=== PATIENT | male | born 1970 ===

== ENCOUNTER 2017-02-01 11:48 | Observation (INO) | payer OTHER ==
--- NOTE | 2017-02-01 13:53 | C.PDOC ---
History Of Present Illness 46 y/o male presents to the ED with complaints of pain and swelling to right calf for the past 2 weeks. He has been taking Advil with little relief. Pt denies having similar symptoms in the past. Last seen by PMD 6 months ago, normal evaluation. 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 Denies chest pain, SOB, fever or other complaints. Denies any significant pmhx or pshx. Denies use of testosterone or hormones. NKDA. Time Seen by Provider: 02/01/17 13:05 Chief Complaint (Nursing): Lower Extremity Problem/Injury History Per: Patient History/Exam Limitations: no limitations Onset/Duration Of Symptoms: Days Current Symptoms Are (Timing): Worse Severity: Moderate Recent travel outside of the [place]: No Past Medical History Reviewed: Historical Data, Nursing Documentation, Vital Signs Vital Signs: Last Vital Signs Temp 97.8 F 02/01/17 17:56 Pulse 86 02/01/17 17:56 Resp 18 02/01/17 17:56 BP 124/79 02/01/17 17:56 Pulse Ox 100 02/01/17 17:56 Family History: States: Unknown Family Hx - Social History Hx Alcohol Use: Yes Hx Substance Use: No - Immunization History Hx Tetanus Toxoid Vaccination: No Hx Influenza Vaccination: Yes (2016) Hx Pneumococcal Vaccination: Yes Review Of Systems Constitutional: Negative for: Fever, Chills Cardiovascular: Negative for: Chest Pain Respiratory: Negative for: Shortness of Breath Musculoskeletal: Positive for: Other (right calf pain and swelling) Physical Exam - Physical Exam Additional Physical Exam Comments: Constitutional: No acute distress. Head: Normocephalic. Atraumatic. Eyes: PERRL. Neck: Supple. Cardiovascular: Regular rate. DP pulse 2+ bilaterally. Chest: No tenderness. Respiratory: Clear to auscultation bilaterally. GI: Soft. Nontender. Nondistended. Back: No CVA tenderness. Musculoskeletal: No tenderness of extremities. Full ROM right knee and hip. Diffuse swelling to right lower leg, nonpitting. Skin: No rash. Neurologic: Alert, no focal deficit. Sensation to light touch intact. ED Course And Treatment - Laboratory Results Result Diagrams: 02/01/17 15:20 02/01/17 15:20 O2 Sat by Pulse Oximetry: 98 (room air) Pulse Ox Interpretation: Normal Against Medical Advice - AMA Patient Left Against Medical Advice: The patient declines admission to the hospital and wishes to leave the Emergency Department. This action is against my medical advice. This decision was made with informed refusal. The patient was told that admission to the hospital is necessary. Explanation of the reasons why were discussed. The risks of leaving were explained to the patient and include, but are not limited to, worsening of known or currently unknown conditions, permanent disability and from undiagnosed or untreated conditions. The patient has the capacity to make this informed decision and understands my explanation of the current medical problem and risks of leaving. The patient voluntarily accepts these risks and signed an AMA form documenting our conversation. The patient was given the opportunity to ask questions and reconsider. The patient was encouraged to return to the Emergency Department at any time for further care. Medical Decision Making Medical Decision Making: Plan: * venous duplex RLE ED OBSERVATION Discharge: Yes Date of observation admission: 02/01/17 Time of observation admission: 14:50 - Observation admission statement Patient is being placed in observation because:: leg swelling - Goals of Observation Goals of observation are:: observation pending CT - Progress Note Progress Note: 1450 DVT study negative. Will send patient for CT of lower leg. [address] 1811 PROCEDURE: CT of the right lower extremity with contrast HISTORY: R leg swelling, palpable mass posterior calf COMPARISON: No prior similar study available for comparison. TECHNIQUE: Axial and reformatted coronal and sagittal CT images of the right lower extremity were obtained from the hip joint to the right foot after IV contrast administration. DLP: 1054.37. FINDINGS: There is ill defined heterogeneous slightly low-attenuation lesion at the proximal portion of the gastrocnemius muscle medial head measures 6.8 centimeter in the largest longitudinal diameter 4 centimeter in the transverse diameter and 3.5 centimeter in the largest AP diameter. There is adjacent subcutaneous stranding and mild skin thickening in the medial posterior aspect of the proximal right leg. The differential diagnosis includes posttraumatic hematoma versus neoplasm. There is adjacent fluid medial and posterior to the muscles. There is mild soft tissue and subcutaneous edema more prominent around the right ankle and proximal right foot. Otherwise the visualize soft tissue in the right thigh and right leg are grossly unremarkable. There is suspicious for filling defect at the right popliteal vein. The possibility of DVT should be excluded. IMPRESSION: The defined intramuscular slightly low-attenuation lesion seen at the peripheral aspect of the gastrocnemius muscle medial head measures 6.8 x 4 x 3.5 centimeter. The differential diagnosis includes intramuscular hematoma due to recent trauma versus less likely neoplasm. Clinical correlation and follow- up reassessment may be obtained. If indicated further assessment by MRI with contrast also may be obtained. Adjacent fluid and subcutaneous stranding seen at the proximal medial aspect of the right leg. Suspicious for filling defect at the right popliteal vein. The possibility of DVT should be considered. There soft tissue edema more prominent around the right leg. These findings were reported to and discussed with the referring emergency room physician at 5:40 p.m. on 02/02/2016 I discussed these results with patient and given that he has a likely hematoma AND perhaps a DVT, I offered admission for further evaluation, consultation with Ortho. Patient however has decided to leave against medical advice. I informed him that he can return at any time. Disposition - Disposition Disposition: AGAINST MEDICAL ADVICE Disposition Time: 18:13 Condition: FAIR - Clinical Impression Clinical Impression: Intramuscular hematoma, DVT (deep venous thrombosis) - Scribe Statement The provider has reviewed the documentation as recorded by the Micah Ignacio Provider Attestation: All medical record entries made by the Micah were at my direction and personally dictated by me. I have reviewed the chart and agree that the record accurately reflects my personal performance of the history, physical exam, medical decision making, and the department course for this patient. I have also personally directed, reviewed, and agree with the discharge instructions and disposition.
[2017-02-01 15:24] LABS: BASO # 0.1 K/uL (0.0-0.2); EOS # 0.3 K/uL (0.0-0.7); EOS % 3.9 % (0.0-4.0); HEMATOCRIT 41.1 % (35.0-51.0); LYMPH # 0.9 K/uL (1.0-4.3); LYMPH % 13.2 % (20.0-40.0); MEAN CELL VOLUME 86.4 fL (80.0-94.0); MEAN CORPUSCULAR HGB CONC 33.6 g/dL (33.0-37.0); MEAN PLATELET VOLUME 8.6 fL (7.2-11.7); MONO # 0.7 K/uL (0.0-0.8); MONO % 9.6 % (0.0-10.0); RED CELL DISTRIBUTION WIDTH 13.4 % (11.5-14.5); WHITE BLOOD COUNT 7.2 K/uL (4.8-10.8)
[2017-02-01 15:44] LABS: CHLORIDE 103 mmol/L (98-107); POTASSIUM 4.5 mmol/L (3.6-5.2); SODIUM 143 mmol/L (132-148)
[2017-02-01 15:46] LABS: AST/SGOT 37 U/L (17-59); CARBON DIOXIDE 27 mmol/L (22-30); GFR AFRICAN-AMERICAN > 60
[2017-02-01 15:47] LABS: ALB/GLOB RATIO 1.1 (1.0-2.1); ALKALINE PHOSPHATASE 84 U/L (38-126); ALT/SGPT 23 U/L (21-72); BLOOD UREA NITROGEN 25 mg/dL (9-20); CALCIUM 8.9 mg/dl (8.6-10.4); GLUCOSE,RANDOM 87 mg/dL (75-110); TOTAL PROTEIN 7.5 g/dL (6.3-8.3)
[2017-02-01] MEDS ORDERED: Iodixanol 320 mg/ml 150 ml Bottle IV ONE (16:05)
[2017-02-01 16:55] VITALS: RESP 18
--- NOTE | 2017-02-01 17:45 | CT ---
PROCEDURE: CT of the right lower extremity with contrast HISTORY: R leg swelling, palpable mass posterior calf COMPARISON: No prior similar study available for comparison. TECHNIQUE: Axial and reformatted coronal and sagittal CT images of the right lower extremity were obtained from the hip joint to the right foot after IV contrast administration. DLP: 1054.37. FINDINGS: There is ill defined heterogeneous slightly low-attenuation lesion at the proximal portion of the gastrocnemius muscle medial head measures 6.8 centimeter in the largest longitudinal diameter 4 centimeter in the transverse diameter and 3.5 centimeter in the largest AP diameter. There is adjacent subcutaneous stranding and mild skin thickening in the medial posterior aspect of the proximal right leg. The differential diagnosis includes posttraumatic hematoma versus neoplasm. There is adjacent fluid medial and posterior to the muscles. There is mild soft tissue and subcutaneous edema more prominent around the right ankle and proximal right foot. Otherwise the visualize soft tissue in the right thigh and right leg are grossly unremarkable. There is suspicious for filling defect at the right popliteal vein. The possibility of DVT should be excluded. IMPRESSION: The defined intramuscular slightly low-attenuation lesion seen at the peripheral aspect of the gastrocnemius muscle medial head measures 6.8 x 4 x 3.5 centimeter. The differential diagnosis includes intramuscular hematoma due to recent trauma versus less likely neoplasm. Clinical correlation and follow-up reassessment may be obtained. If indicated further assessment by MRI with contrast also may be obtained. Adjacent fluid and subcutaneous stranding seen at the proximal medial aspect of the right leg. Suspicious for filling defect at the right popliteal vein. The possibility of DVT should be considered. There soft tissue edema more prominent around the right leg. These findings were reported to and discussed with the referring emergency room physician at 5:40 p.m. on 02/02/2016
[2017-02-01 17:57] VITALS: BP 124/79; PULSE 86; TEMP 97.8
[2017-02-01 18:14] VITALS: O2SAT 98
--- NOTE | 2017-02-02 16:29 | VASCLAB ---
PROCEDURE: Right Lower Extremity Venous Duplex Exam. HISTORY: R leg swelling PRIORS: None. TECHNIQUE: Right common femoral, femoral, popliteal and posterior tibial, peroneal and great saphenous veins were evaluated. Flow was assessed with color Doppler, compressibility, assessment of phasic flow and augmentation response. Report prepared by KATINA Lance, RVT FINDINGS: RIGHT: 1. Common Femoral Vein: 1.1. Compressibility - Fully compressible: Thrombus - None: Flow - Phasic: Augmentation -Normal: Reflux - None. 2. Femoral Vein: 2.1. Compressibility - Fully compressible: Thrombus - None: Flow - Phasic: Augmentation -Normal: Reflux - None. 3. Popliteal Vein: 3.1. Compressibility - Fully compressible: Thrombus - None: Flow - Phasic: Augmentation -Normal: Reflux - None. 4. Posterior Tibial Vein: 4.1. Compressibility - Fully compressible: Thrombus - None: Flow - Phasic: Augmentation -Normal: Reflux - None. 5. Peroneal Vein: 5.1. Compressibility - Fully compressible: Thrombus - None: Flow - Phasic: Augmentation -Normal: Reflux - None. 6. Great Saphenous Vein: 6.1. Compressibility - Fully compressible: Thrombus -None: Flow - Phasic: Augmentation - Normal: Reflux - None. OTHER FINDINGS: IMPRESSION: No evidence of deep or superficial vein thrombosis of the right lower extremity with excellent venous flow. Normal valve function noted of the right side. Normal venous flow noted in the left common femoral vein.
== END 2017-02-01 18:14 | disposition left against medical advice (07) ==
LOC: C.ER 11:48 → C.9OBSV 14:50
PROVIDERS: ADMIT Student in an Organized Health Care Education/Training Program; ATTEND Student in an Organized Health Care Education/Training Program
DX: M79.81 Nontraumatic hematoma of soft tissue (principal); I82.402 Acute embolism and thrombosis of unspecified deep veins of left lower extremity
CPT/HCPCS: 73701; 80053; 85025; 93971; G0378; Q9965

== ENCOUNTER 2017-02-08 10:01 | Inpatient (IN) | payer OTHER ==
[2017-02-08 10:13] VITALS: BMI 32.1
--- NOTE | 2017-02-08 11:32 | C.PDOC ---
History Of Present Illness <Silvina Joseph - Last Filed: 02/08/17 15:34> <Leatha Hernandezjorie Zac - Last Filed: 02/08/17 18:39> 46 yr old male presents to the ER with an area of redness and swelling to the right lower leg. Patient was seen on 02/01 for same complaint and had a dopplar which was negative for DVT and CT of the leg with contrast which showed a mass in the gastrocnemius muscle, hematoma vs. neoplasm with stranding. Patient denies fever, chest pain, SOB, nausea, vomiting, foot pain, weakness or numbness. (Ladonna Hernandez) <Silvina Joseph - Last Filed: 02/08/17 15:34> History Per: Patient History/Exam Limitations: no limitations Onset/Duration Of Symptoms: Days <Leatha Hernandezvel Frank - Last Filed: 02/08/17 18:39> Time Seen by Provider: 02/08/17 10:45 Chief Complaint (Nursing): Lower Extremity Problem/Injury Past Medical History Reviewed: Historical Data, Nursing Documentation, Vital Signs Family History: States: No Known Family Hx - Social History Hx Alcohol Use: Yes Hx Substance Use: No - Immunization History Hx Tetanus Toxoid Vaccination: No Hx Influenza Vaccination: Yes (2015) Hx Pneumococcal Vaccination: Yes <Leatha Hernandezvel Frank - Last Filed: 02/08/17 18:39> Vital Signs: Last Vital Signs Temp 99.3 F 02/08/17 13:58 Pulse 87 02/08/17 13:58 Resp 20 02/08/17 13:58 BP 97/57 L 02/08/17 13:58 Pulse Ox 98 02/08/17 13:58 Review Of Systems Except As Marked, All Systems Reviewed And Found Negative. Constitutional: Negative for: Fever Cardiovascular: Negative for: Chest Pain Respiratory: Negative for: Shortness of Breath Gastrointestinal: Negative for: Nausea, Vomiting Musculoskeletal: Positive for: Other ((+) Area of swelling and redness to the right posterior leg. ). Negative for: Foot Pain Neurological: Negative for: Weakness, Numbness <MaryLadonna C - Last Filed: 02/08/17 18:39> Physical Exam - Physical Exam Appears: Non-toxic, No Acute Distress Skin: Warm, Dry, No Rash Head: Atraumatic, Normacephalic Oral Mucosa: Moist Chest: Symmetrical, No Tenderness Cardiovascular: Rhythm Regular, No Murmur Respiratory: Normal Breath Sounds, No Rales, No Rhonchi, No Wheezing Extremity: Other ((+) 10x6cm area of erythema, swelling, tenderness and induration to the right posterior calf. No fluctuance. ) Neurological/Psych: Oriented x3, Normal Speech, Normal Motor <Ladonna Hernandez - Last Filed: 02/08/17 18:39> ED Course And Treatment - Laboratory Results Result Diagrams: 02/08/17 13:02 02/08/17 13:02 <Silvina Joseph - Last Filed: 02/08/17 15:34> - Laboratory Results Result Diagrams: 02/08/17 13:02 02/08/17 13:02 - CT Scan/US US - Left Lower Extremity Other Rad Studies (CT/US): Read By Radiologist, Radiology Report Reviewed CT/US Interpretation: Limited right lower extremity soft tissue ultrasound. Comparison: None available. Technique: Real-time sonography was performed through the soft tissues at the level of the posterior right knee. Findings: Complex heterogeneous hypoechoic fluid collection seen at the site of the external abnormality within the posterior soft tissues of the right knee measuring 8.2 x 7.4 x 3.5 centimeters. Internal areas of increased echogenicity. This is of uncertain clinical etiology and may represent an underlying abscess collection. Additional etiologies not excluded. Prominent overlying soft tissue swelling and reticulation. Impression: Complex heterogeneous hypoechoic fluid collection seen at the site of the external abnormality within the posterior soft tissues of the right knee measuring 8.2 x 7.4 x 3.5 centimeters. Internal areas of increased echogenicity. This is of uncertain clinical etiology and may represent an underlying abscess collection. Additional etiologies not excluded. Prominent overlying soft tissue swelling and reticulation. Clinical correlation. Dopplar Other Rad Studies (CT/US): Read By Radiologist, Radiology Report Reviewed CT/US Interpretation: Negative for DVT. <Ladonna Hernandez - Last Filed: 02/08/17 18:39> Supervising Attending Note - Supervising Attending Note The Documented history was done by the: Physician Sheet Rock Layer The documented physical exam was done by the: Physician Sheet Rock Layer The documented procedures were done by the: Physician Sheet Rock Layer - Attestation: I have personally seen and examined this patient.: Yes I have fully participated in the care of the patient.: Yes I have reviewed all pertinent clinical information, including history, physical exam and plan: Yes <Silvina Joseph - Last Filed: 02/08/17 15:34> <Ladonna Hernandez - Last Filed: 02/08/17 18:39> - Notes: Notes:: WORSENING REDNESS, SWELLING R LEG X 10 DAYS. SEEN 02/01 FOR SAME, CT DONE. NO FEVER. +CHILLS. NO DM. EXAM ABOVE. REPEAT DOPPLER, US SOFT TISSUE RO ABSCESS (Silvina Joseph) Medical Decision Making <Silvina Joseph - Last Filed: 02/08/17 15:34> <Ladonna Hernandez - Last Filed: 02/08/17 18:39> Medical Decision Making: PLAN: * Venous Dopplar * US - Left Lower Extremity * CBC * CMP * Toradol IVP venous Doppler was repeated and there is no DVT. US of the extremity shows a pocket of fluid most likely abscess. The case was discussed with Dr. Castillo ( general surgeon oncall) who agrees to consult on the patient for potential I&D in the OR and requests for the patient to be admitted to hospitalist. Patient is to be NPO after midnight. Case was discussed with Dr. Slater (hospitalist) who agrees to admit the patient to his service. (Ladonna Hernandez) Disposition <Silvina Joseph - Last Filed: 02/08/17 15:34> - Disposition Disposition Time: 16:45 - POA Present On Arrival: None <Ladonna Hernandez - Last Filed: 02/08/17 18:39> - Disposition Disposition: HOSPITALIZED Condition: FAIR - Clinical Impression Clinical Impression: Abscess, Cellulitis <Silvina Joseph - Last Filed: 02/08/17 15:34> - PA / TIRE MOUNTER / Resident Statement MD/DO has reviewed & agrees with the documentation as recorded. - Scribe Statement The provider has reviewed the documentation as recorded by the Scribe <Ladonna Hernandez - Last Filed: 02/08/17 18:39> - Scribe Statement Sulma Ng All medical record entries made by the Scribe were at my direction and personally dictated by me. I have reviewed the chart and agree that the record accurately reflects my personal performance of the history, physical exam, medical decision making, and the department course for this patient. I have also personally directed, reviewed, and agree with the discharge instructions and disposition. (Ladonna Hernandez)
[2017-02-08 13:12] LABS: BASO # 0.1 K/uL (0.0-0.2); BASO % 1.5 % (0.0-2.0); EOS # 0.1 K/uL (0.0-0.7); HEMOGLOBIN 13.6 g/dL (12.0-18.0); LYMPH # 0.9 K/uL (1.0-4.3); LYMPH % 12.8 % (20.0-40.0); MEAN CELL VOLUME 86.1 fL (80.0-94.0); MEAN CORPUSCULAR HEMOGLOBIN 29.3 pg (27.0-31.0); MEAN CORPUSCULAR HGB CONC 34.1 g/dL (33.0-37.0); MEAN PLATELET VOLUME 8.7 fL (7.2-11.7); MONO # 0.9 K/uL (0.0-0.8); MONO % 12.6 % (0.0-10.0); NEUT # 5.2 K/uL (1.8-7.0); NEUT % 71.1 % (50.0-75.0); NRBC % 0.1 % (0.0-2.0); RBC 4.62 Mil/uL (4.40-5.90); RED CELL DISTRIBUTION WIDTH 12.9 % (11.5-14.5); WHITE BLOOD COUNT 7.3 K/uL (4.8-10.8)
--- NOTE | 2017-02-08 13:16 | VASCLAB ---
PROCEDURE: Right Lower Extremity Venous Duplex Exam. HISTORY: R leg swelling, possible DVT PRIORS: 02/01/2017, Normal. TECHNIQUE: Right common femoral, femoral, popliteal and posterior tibial, peroneal and great saphenous veins were evaluated. Flow was assessed with color Doppler, compressibility, assessment of phasic flow and augmentation response. Report prepared by CRISTA Marina FINDINGS: RIGHT: 1. Common Femoral Vein: 1.1. Compressibility - Fully compressible: Thrombus - None: Flow - Phasic: Augmentation -Normal: Reflux - None. 2. Femoral Vein: 2.1. Compressibility - Fully compressible: Thrombus - None: Flow - Phasic: Augmentation -Normal: Reflux - None. 3. Popliteal Vein: 3.1. Compressibility - Fully compressible: Thrombus - None: Flow - Phasic: Augmentation -Normal: Reflux - None. 4. Posterior Tibial Vein: 4.1. Compressibility - Fully compressible: Thrombus - None: Flow - Phasic: Augmentation -Normal: Reflux - None. 5. Peroneal Vein: 5.1. Compressibility - Fully compressible: Thrombus - None: Flow - Phasic: Augmentation -Normal: Reflux - None. 6. Great Saphenous Vein: 6.1. Compressibility - Fully compressible: Thrombus -None: Flow - Phasic: Augmentation - Normal: Reflux - None. OTHER FINDINGS: A non vascularized structure was noted in the right posterior mid calf area, measuring3.66 x 5.02 c.m. IMPRESSION: No evidence of deep or superficial vein thrombosis of the right lower extremity with excellent venous flow. Normal valve function noted of the right side. Normal venous flow noted in the left common femoral vein.
[2017-02-08 13:34] LABS: ALBUMIN 3.7 g/dL (3.5-5.0)
[2017-02-08 13:37] LABS: ALB/GLOB RATIO 0.9 (1.0-2.1); AST/SGOT 35 U/L (17-59); GFR AFRICAN-AMERICAN > 60; GFR NON-AFRICAN AMERICAN > 60
[2017-02-08 13:38] LABS: ALT/SGPT 27 U/L (21-72); BLOOD UREA NITROGEN 13 mg/dL (9-20); CALCIUM 8.6 mg/dl (8.6-10.4)
--- NOTE | 2017-02-08 15:58 | US ---
Limited right lower extremity soft tissue ultrasound Comparison: None available. Technique: Real-time sonography was performed through the soft tissues at the level of the posterior right knee. Findings: Complex heterogeneous hypoechoic fluid collection seen at the site of the external abnormality within the posterior soft tissues of the right knee measuring 8.2 x 7.4 x 3.5 centimeters. Internal areas of increased echogenicity. This is of uncertain clinical etiology and may represent an underlying abscess collection. Additional etiologies not excluded. Prominent overlying soft tissue swelling and reticulation. Impression: Complex heterogeneous hypoechoic fluid collection seen at the site of the external abnormality within the posterior soft tissues of the right knee measuring 8.2 x 7.4 x 3.5 centimeters. Internal areas of increased echogenicity. This is of uncertain clinical etiology and may represent an underlying abscess collection. Additional etiologies not excluded. Prominent overlying soft tissue swelling and reticulation. Clinical correlation.
[2017-02-08] MEDS ORDERED: Piperacillin/Tazobact 3.375 gm 100 ML IV STA (16:04)
[2017-02-08] MEDS ORDERED: Piperacillin/Tazobact 3.375 gm 100 ML IVPB ONE (16:20)
--- NOTE | 2017-02-08 18:17 | CP.PCM.HP ---
History of Present Illness - History of Present Illness History of Present Illness: CC: Right leg abscess HPI: Patient is 46 year old male with no significant past medical history presents to the ED with complaints of an area of redness and swelling to the right lower leg. Patient was seen on 02/01 for same complaint and had a doppler which was negative for DVT and CT of the leg with contrast which showed a mass in the gastrocnemius muscle, hematoma vs. neoplasm with stranding. Patient was asked to be admitted but he denied and left. Currently, patient states that his symptoms has worsens over the past week, rating his pain a 8/10. Patient states that his pain his alleviated with walking and exacerbated with standing. Patient states that he has been taking advil, which provided minimal relief. Patient denies any radiation with this pain. Patient reports fever, chills, night sweats but denies chest pain, sob, abd pain, nausea, vomiting, urinary symptoms, rash, sick contacts and recent travels. PMD: None currently PMH: Denies Meds: Advil for pain Allergy: NKDA PSH: Denies Hosp: Denies FH: Psoriasis Social Hx: Lives with cousin, unemployed Former smoker (quit 15 yrs ago; 1ppd) ETOh use socially, denies illicit drug use Meds given in the ER: Toradol 30mg IV stat, Zosyn 3.375 IV stat Present on Admission - Present on Admission Any Indicators Present on Admission: No Review of Systems - Constitutional Constitutional: Chills, Fever, Night Sweats. absent: Excessive Sweating, Headache - EENT Eyes: absent: Blurred Vision, Change in Vision Ears: absent: Dizziness - Cardiovascular Cardiovascular: Leg Edema. absent: Chest Pain, Lightheadedness, Orthopnea, Palpitations, Radiating Pain - Respiratory Respiratory: absent: Cough, Dyspnea - Gastrointestinal Gastrointestinal: absent: Abdominal Pain, Diarrhea, Nausea, Vomiting - Genitourinary Genitourinary: absent: Pyuria, Urinary Frequency, Urinary Hesitance - Musculoskeletal Musculoskeletal: Joint Swelling, Limited Range of Motion - Neurological Neurological: absent: Dizziness, Headaches - Endocrine Endocrine: absent: Excessive Sweating, Palpitations Past Patient History - Past Social History Smoking Status: Former Smoker - ENDOCRINE/METABOLIC Hx Endocrine Disorders: Yes Hx Diabetes Mellitus Type 2: Yes - PSYCHIATRIC Hx Substance Use: No - SURGICAL HISTORY Hx Surgeries: No - ANESTHESIA Hx Anesthesia: No Meds Allergies/Adverse Reactions: Allergies Allergy/AdvReac Type Severity Reaction Status Date / Time No Known Allergies Allergy Verified 02/08/17 10:11 Physical Exam - Constitutional Appears: No Acute Distress - Head Exam Head Exam: NORMAL INSPECTION, NORMOCEPHALIC - Eye Exam Eye Exam: EOMI, Normal appearance - ENT Exam ENT Exam: Mucous Membranes Moist, Normal Exam - Neck Exam Neck exam: Positive for: Normal Inspection - Respiratory Exam Respiratory Exam: Clear to Auscultation Bilateral, NORMAL BREATHING PATTERN - Cardiovascular Exam Cardiovascular Exam: REGULAR RHYTHM, +S1, +S2 - GI/Abdominal Exam GI & Abdominal Exam: Normal Bowel Sounds, Soft - Extremities Exam Extremities exam: Positive for: calf tenderness, pedal pulses present - Neurological Exam Neurological exam: Alert, Oriented x3 - Psychiatric Exam Psychiatric exam: Normal Affect, Normal Mood - Skin Skin Exam: Dry, Normal Color, Warm Results - Vital Signs Recent Vital Signs: Last Vital Signs Temp 99.3 F 02/08/17 13:58 Pulse 87 02/08/17 13:58 Resp 20 02/08/17 13:58 BP 97/57 L 02/08/17 13:58 Pulse Ox 98 02/08/17 13:58 - Labs Result Diagrams: 02/08/17 13:02 02/08/17 13:02 Assessment & Plan (1) Abscess of right leg Assessment and Plan: Secondary to cellulitis Venous Doppler Scan: negative for DVT Ultrasound of Lower extremities: Complex heterogeneous hypoechoic fluid collection seen within the posterior soft tissues of the right knee measuring 8.2 x 7.4 x3.5 centimeters. Internal areas increasing echogenicity. Uncertain clinical etiology and may represent an underlying abscess collection. Prominent overlying soft tissue swelling and reticulation Pending blood culture NS 100ml @ 125mls/hr Zosyn 4.5gm IV Q6H Vancomycin 1000MG IVPB Q12H Acetaminophen 650mg PO Q6 PRN Toradol 30mg IVP Q6 PRN Oxycodone 5MG PO Q6 PRN Gen Surgery ( Dr. Castillo consulted) ----> Help appreciated Status: Acute (2) Prophylactic measure Assessment and Plan: Heparin 5000 units SC Q8 Status: Acute
[2017-02-08] MEDS: Piperacill/Tazo 4.5gm in Dex 4.5 GM/100 ML BAG IVPB SCH (18:27)
[2017-02-08] MEDS ORDERED: Vancomycin 1 GM 1 GM/250 ML BAG IVPB ONE (18:33)
[2017-02-08] MEDS ORDERED: Sodium Chloride 0.9% 1,000 ML ONE (18:34)
[2017-02-08] MEDS: Sodium Chloride 0.9% 1,000 ML IV SCH (18:38)
[2017-02-09] MEDS: Piperacill/Tazo 4.5gm in Dex 4.5 GM/100 ML BAG IVPB SCH ×4 (00:59→20:56)
[2017-02-09] MEDS: Sodium Chloride 0.9% 1,000 ML IV SCH ×3 (01:41→17:25)
[2017-02-09 07:28] LABS: BASO # 0.1 K/uL (0.0-0.2); EOS # 0.2 K/uL (0.0-0.7); EOS % 3.6 % (0.0-4.0); HEMOGLOBIN 12.2 g/dL (12.0-18.0); LYMPH # 0.6 K/uL (1.0-4.3); LYMPH % 10.3 % (20.0-40.0); MEAN CELL VOLUME 85.6 fL (80.0-94.0); MEAN CORPUSCULAR HEMOGLOBIN 29.6 pg (27.0-31.0); MEAN CORPUSCULAR HGB CONC 34.6 g/dL (33.0-37.0); MEAN PLATELET VOLUME 8.6 fL (7.2-11.7); MONO % 15.3 % (0.0-10.0); NEUT # 4.4 K/uL (1.8-7.0); NEUT % 69.8 % (50.0-75.0); NRBC % 0.1 % (0.0-2.0); PLATELET COUNT 149 K/uL (130-400); RBC 4.13 Mil/uL (4.40-5.90); RED CELL DISTRIBUTION WIDTH 13.1 % (11.5-14.5); WHITE BLOOD COUNT 6.3 K/uL (4.8-10.8)
[2017-02-09 08:15] LABS: GFR AFRICAN-AMERICAN > 60; GFR NON-AFRICAN AMERICAN > 60
[2017-02-09 08:16] LABS: ALB/GLOB RATIO 0.9 (1.0-2.1); ALT/SGPT 22 U/L (21-72); AST/SGOT 28 U/L (17-59); BLOOD UREA NITROGEN 14 mg/dL (9-20)
[2017-02-09 08:17] LABS: MAGNESIUM 2.1 mg/dL (1.6-2.3)
[2017-02-09 09:19] LABS: ANISOCYTOSIS SLIGHT; BANDS 19 % (0-2); EOSINOPHIL 2 % (0-4); LYMPHOCYTE 12 % (20-40); MONOCYTE 12 % (0-10); MYELOCYTE 1 % (0-0); NEUTROPHIL 54 % (50-75); PLATELET ESTIMATE NORMAL (NORMAL); POIKILOCYTOSIS SLIGHT; TOTAL CELLS COUNTED 100
[2017-02-09] MEDS: oxyCODONE 5 mg Immediate Release Tab PO PRN (10:08)
[2017-02-09 15:26] LABS: SQUAMOUS EPITHIAL < 1 /hpf (0-5); URINE BILIRUBIN NEGATIVE (NEGATIVE); URINE BLOOD NEGATIVE (NEGATIVE); URINE CLARITY Clear (Clear); URINE COLOR Yellow (YELLOW); URINE GLUCOSE (UA) NORMAL (Normal); URINE LEUKOCYTE ESTERASE NEG Leu/uL (Negative); URINE NITRATE NEGATIVE (NEGATIVE); URINE PROTEIN NEGATIVE (NEGATIVE); URINE UROBILINOGEN NORMAL mg/dL (0.2-1.0)
[2017-02-09] MEDS: Saccharomyces Boulardi 250 mg Cap PO SCH (17:25)
[2017-02-09] MEDS ORDERED: HYDROmorphone 0.5 mg/0.5 ml ISec IVP PRN (17:33)
[2017-02-09] MEDS ORDERED: Midazolam 2 MG/2 ML VIAL ONE (17:43)
[2017-02-09] MEDS ORDERED: Propofol 10 mg/ml Inj (20 ML) ONE (17:43)
[2017-02-09] MEDS ORDERED: Lactated Ringer's 1,000 ML IV ONE ×2 (17:45→18:20)
--- NOTE | 2017-02-09 18:48 | CP.PCM.PN ---
<Grace Mckinney - Last Filed: 02/09/17 20:21> Subjective - Date & Time of Evaluation Date of Evaluation: 02/09/17 Time of Evaluation: 07:30 - Subjective Subjective: PGY1 on medicine Dr. Eid's service: Patient seen and examined at bedside this morning. Patient states he has right leg tenderness near his calf area. Patient states the pain is like a burning pain. Patient states his leg feels warm and is red. Patient denies chest pain , current shortness of breath, dysuria, vomiting, diarrhea, or constipation. Objective - Vital Signs/Intake and Output Vital Signs (last 24 hours): Temp Pulse Resp BP Pulse Ox 98.3 F 73 20 105/68 97 02/09/17 16:17 02/09/17 16:17 02/09/17 16:17 02/09/17 16:17 02/09/17 16:17 Intake and Output: 02/09/17 02/09/17 06:59 18:59 Intake Total 440 1000 Balance 440 1000 - Medications Medications: Current Medications Acetaminophen (Tylenol 325mg Tab) 650 mg PO Q6 PRN PRN Reason: Pain, Mild (1-3) Hydromorphone HCl (Dilaudid) 0.5 mg IVP Q5M PRN PRN Reason: Pain, moderate (4-7) Stop: 02/09/17 19:33 Piperacillin Sod/Tazobactam Sod (Zosyn 4.5 Gm Iv Premix) 4.5 gm in 100 mls @ 200 mls/hr IVPB Q6H [facility] Last Admin: 02/09/17 11:05 Dose: 200 mls/hr Vancomycin HCl 1,000 mg/ (Sodium Chloride) 250 mls @ 166.6 mls/hr IVPB Q12H [facility] Last Admin: 02/09/17 18:30 Dose: 0 mls Sodium Chloride (Sodium Chloride 0.9%) 1,000 mls @ 125 mls/hr IV .Q8H [facility] Last Admin: 02/09/17 17:25 Dose: Not Given Ketorolac Tromethamine (Toradol) 30 mg IVP Q6 PRN PRN Reason: Pain, moderate (4-7) Ondansetron HCl (Zofran Inj) 4 mg IVP ONCE PRN PRN Reason: Nausea/Vomiting Stop: 02/09/17 19:34 Oxycodone HCl (Oxycodone Immediate Release Tab) 5 mg PO Q6 PRN PRN Reason: Pain, severe (8-10) Last Admin: 02/09/17 10:08 Dose: 5 mg Saccharomyces Boulardii (Florastor) 250 mg PO BID [facility] Last Admin: 02/09/17 17:25 Dose: Not Given - Labs Labs: 02/09/17 07:14 02/09/17 07:14 - Constitutional Appears: No Acute Distress - Eye Exam Eye Exam: Normal appearance - ENT Exam ENT Exam: Mucous Membranes Moist - Respiratory Exam Respiratory Exam: Clear to Ausculation Bilateral, NORMAL BREATHING PATTERN. absent: Rales, Rhonchi, Wheezes, Stridor - Cardiovascular Exam Cardiovascular Exam: REGULAR RHYTHM, +S1, +S2. absent: JVD - GI/Abdominal Exam GI & Abdominal Exam: Soft, Normal Bowel Sounds. absent: Tenderness - Extremities Exam Extremities Exam: Tenderness (right lower leg tenderness) Additional comments: right lower leg swelling - Neurological Exam Neurological Exam: Alert, Awake, Oriented x3 - Psychiatric Exam Psychiatric exam: Normal Mood - Skin Skin Exam: Erythema, Warm Additional comments: right lower leg is red, warm and swollen Assessment and Plan - Assessment and Plan (Free Text) Assessment: Patient is 46 year old male with no significant past medical history presents to the ED 02/08/17 with complaints of an area of redness and swelling to the right lower leg. Plan: (1) Abscess of right leg 1.) Abscess of the Right Leg - Secondary to cellulitis - Venous Doppler Scan 02/08/17: negative for DVT - Ultrasound of Lower extremities 02/08/17: Complex heterogeneous hypoechoic fluid collection seen within the posterior soft tissues of the right knee measuring 8.2 x 7.4 x3.5 centimeters. Internal areas increasing echogenicity. Uncertain clinical etiology and may represent an underlying abscess collection. Prominent overlying soft tissue swelling and reticulation - f/u blood culture - NS 100ml @ 125mls/hr - Zosyn 4.5gm IV Q6H (started 02/08/17) - Vancomycin 1000MG IVPB Q12H (started 02/08/17) - Acetaminophen 650mg PO Q6 PRN - Toradol 30mg IVP Q6 PRN - Oxycodone 5MG PO Q6 PRN - Lasix 20mg PO once - Gen Surgery ( Dr. Castillo consulted) ----> Help appreciated - NPO 2.) Prophylaxis - Heparin 5000 units SC Q8 - D/C 02/09/17 - Florastor - PT Evaluation <Elena Eid V - Last Filed: 02/11/17 09:32> Objective - Vital Signs/Intake and Output Vital Signs (last 24 hours): Temp Pulse Resp BP Pulse Ox 98.0 F 65 20 94/61 L 95 02/10/17 23:25 02/10/17 23:25 02/10/17 23:25 02/10/17 23:25 02/10/17 23:25 - Medications Medications: Current Medications Acetaminophen (Tylenol 325mg Tab) 650 mg PO Q6 PRN PRN Reason: Pain, Mild (1-3) Piperacillin Sod/Tazobactam Sod (Zosyn 4.5 Gm Iv Premix) 4.5 gm in 100 mls @ 200 mls/hr IVPB Q6H [facility] Last Admin: 02/11/17 00:52 Dose: 200 mls/hr Vancomycin HCl 1,000 mg/ (Sodium Chloride) 250 mls @ 166.6 mls/hr IVPB Q12H [facility] Last Admin: 02/10/17 18:35 Dose: 166.6 mls/hr Sodium Chloride (Sodium Chloride 0.9%) 1,000 mls @ 125 mls/hr IV .Q8H [facility] Last Admin: 02/10/17 21:37 Dose: 125 mls/hr Oxycodone HCl (Oxycodone Immediate Release Tab) 5 mg PO Q6 PRN PRN Reason: Pain, severe (8-10) Last Admin: 02/10/17 23:42 Dose: 5 mg Saccharomyces Boulardii (Florastor) 250 mg PO BID [facility] Last Admin: 02/10/17 18:46 Dose: 250 mg - Labs Labs: 02/10/17 07:03 02/10/17 07:03 Attending/Attestation - Attestation I have personally seen and examined this patient.: Yes I have fully participated in the care of the patient.: Yes I have reviewed all pertinent clinical information, including history, physical exam and plan: Yes Notes (Text): This is a late computer entry for 02/09/17. Patient seen, examined and case discussed with day-time administrative intern. Patient seen in the morning prior to OR for I&D. Patient reporting pain 10/10 over the right posterior thigh. Patient is currently NPO for an I&D of abscess. Patient is currently on IV antibiotics to cover for cellulitis. Patient noted to have bandemia on blood work but does not meet sepsis criteria at this time. Patient ordered for physical therapy eval. At bedside, patient denies acute medical conditions at bedside. Assessment/Plan 1.) Abscess of the Right Leg and associated cellulitis * Consult: Dr. Chapin (general surgery) on the case * Venous Doppler Scan 02/08/17: negative for DVT * Ultrasound of Lower extremities 02/08/17: Complex heterogeneous hypoechoic fluid collection seen within the posterior soft tissues of the right knee measuring 8.2 x 7.4 x3.5 centimeters. Internal areas increasing echogenicity. Uncertain clinical etiology and may represent an underlying abscess collection. Prominent overlying soft tissue swelling and reticulation * NS 125mls/hr * IV Abx: Zosyn 4.5gm IV Q6H (started 02/08/17) and Vancomycin 1 gram IVPB Q12H ( started 02/08/17) * Acetaminophen 650mg PO Q6 PRN mild pain * Oxycodone 5MG PO Q6 PRN severe pain * NPO except for medications * Monitor blood cultures given bandemia 2) Bandemia * secondary to cellulitis and associated abscess * IV Abx: Zosyn 4.5gm IV Q6H (started 02/08/17) and Vancomycin 1 gram IVPB Q12H ( started 02/08/17) * Monitor cultures * Monitor vital signs 3.) Prophylaxis * held Heparin 5000 units SC Q8 prior to OR * Florastor 250mg PO bid * PT eval
[2017-02-10] MEDS: Piperacill/Tazo 4.5gm in Dex 4.5 GM/100 ML BAG IVPB SCH ×4 (00:12→18:46)
[2017-02-10 07:27] LABS: BASO % 0.6 % (0.0-2.0); EOS # 0.3 K/uL (0.0-0.7); EOS % 6.2 % (0.0-4.0); HEMOGLOBIN 12.1 g/dL (12.0-18.0); LYMPH # 0.5 K/uL (1.0-4.3); LYMPH % 12.4 % (20.0-40.0); MEAN CELL VOLUME 86.1 fL (80.0-94.0); MEAN CORPUSCULAR HGB CONC 33.7 g/dL (33.0-37.0); MEAN PLATELET VOLUME 8.5 fL (7.2-11.7); MONO # 0.5 K/uL (0.0-0.8); NEUT % 68.8 % (50.0-75.0); NRBC % 0.1 % (0.0-2.0); PLATELET COUNT 145 K/uL (130-400); RBC 4.17 Mil/uL (4.40-5.90); RED CELL DISTRIBUTION WIDTH 12.9 % (11.5-14.5); WHITE BLOOD COUNT 4.4 K/uL (4.8-10.8)
--- NOTE | 2017-02-10 07:42 | CP.PCM.PN ---
<Grace Mckinney - Last Filed: 02/10/17 16:44> Subjective - Date & Time of Evaluation Date of Evaluation: 02/10/17 Time of Evaluation: 07:00 - Subjective Subjective: PGY1 on medicine Dr. Eid's service: Patient seen and examined at bedside this morning. Patient states he still has right leg tenderness near his calf area. Patient states the pain is between a 7 and half to an 8 out of 10. Patient states his leg feels warm and is red. Patient states he has pain when he attempts to straighten his leg in bed. Patient denies fever, chest pain, current shortness of breath, dysuria, vomiting, diarrhea, or constipation. Patient has also admitted that he has been told recently by his primary physician that he does have diabetes. Objective - Vital Signs/Intake and Output Vital Signs (last 24 hours): Temp Pulse Resp BP Pulse Ox 97.9 F 71 20 98/62 L 96 02/09/17 23:40 02/09/17 23:40 02/09/17 23:40 02/09/17 23:40 02/09/17 23:40 Intake and Output: 02/10/17 02/10/17 06:59 18:59 Intake Total 250 Balance 250 - Medications Medications: Current Medications Acetaminophen (Tylenol 325mg Tab) 650 mg PO Q6 PRN PRN Reason: Pain, Mild (1-3) Piperacillin Sod/Tazobactam Sod (Zosyn 4.5 Gm Iv Premix) 4.5 gm in 100 mls @ 200 mls/hr IVPB Q6H [facility] Last Admin: 02/10/17 06:38 Dose: 200 mls/hr Vancomycin HCl 1,000 mg/ (Sodium Chloride) 250 mls @ 166.6 mls/hr IVPB Q12H [facility] Last Admin: 02/09/17 18:30 Dose: 0 mls Sodium Chloride (Sodium Chloride 0.9%) 1,000 mls @ 125 mls/hr IV .Q8H [facility] Last Admin: 02/09/17 17:25 Dose: Not Given Ketorolac Tromethamine (Toradol) 30 mg IVP Q6 PRN PRN Reason: Pain, moderate (4-7) Oxycodone HCl (Oxycodone Immediate Release Tab) 5 mg PO Q6 PRN PRN Reason: Pain, severe (8-10) Last Admin: 02/09/17 10:08 Dose: 5 mg Saccharomyces Boulardii (Florastor) 250 mg PO BID [facility] Last Admin: 02/09/17 17:25 Dose: Not Given - Labs Labs: 02/10/17 07:03 02/09/17 07:14 - Constitutional Appears: No Acute Distress - Head Exam Head Exam: NORMAL INSPECTION - Eye Exam Eye Exam: Normal appearance - ENT Exam ENT Exam: Mucous Membranes Moist - Respiratory Exam Respiratory Exam: Clear to Ausculation Bilateral, NORMAL BREATHING PATTERN. absent: Rales, Rhonchi, Wheezes, Stridor - Cardiovascular Exam Cardiovascular Exam: REGULAR RHYTHM, RRR, +S1, +S2. absent: JVD - GI/Abdominal Exam GI & Abdominal Exam: Soft, Normal Bowel Sounds. absent: Tenderness - Extremities Exam Extremities Exam: Tenderness (abcess in the right calf ) - Neurological Exam Neurological Exam: Alert, Awake, Oriented x3 - Psychiatric Exam Psychiatric exam: Normal Mood - Skin Skin Exam: Dry, Intact, Warm. absent: Normal Color (Right calf abcess the skin is warm, swollen and red) Assessment and Plan - Assessment and Plan (Free Text) Assessment: Patient is 46 year old male with no significant past medical history presents to the ED 02/08/17 with complaints of an area of redness and swelling to the right lower leg. Plan: 1.) Abscess of the Right Leg - Secondary to Cellulitis - Venous Doppler Scan 02/08/17: negative for DVT - Ultrasound of Lower extremities 02/08/17: Complex heterogeneous hypoechoic fluid collection seen within the posterior soft tissues of the right knee measuring 8.2 x 7.4 x3.5 centimeters. Internal areas increasing echogenicity. Uncertain clinical etiology and may represent an underlying abscess collection. Prominent overlying soft tissue swelling and reticulation -NS 100ml @ 125mls/hr - Zosyn 4.5gm IV Q6H (started 02/08/17) - Vancomycin 1000MG IVPB Q12H (started 02/08/17) - Vancomycin Trough (02/10/17): 5.0 - Acetaminophen 650mg PO Q6 PRN - Oxycodone 5MG PO Q6 PRN - Gen Surgery (Dr. Castillo consulted) ----> Help appreciated -Incision and Drainage performed 02/09/17 - f/u Blood culture (02/08/17) 2.) History (New Onset) of Diabetes - hA1C: 7.3 - Discussed with patient diet and exercise for 3-4 months to control blood sugar levels 3.) Prophylaxis - Heparin 5000 units SC Q8 - Discontinued 02/09/17 - Florastor - PT Evaluation <Elena Eid V - Last Filed: 02/11/17 09:24> Objective - Vital Signs/Intake and Output Vital Signs (last 24 hours): Temp Pulse Resp BP Pulse Ox 98.0 F 65 20 94/61 L 95 02/10/17 23:25 02/10/17 23:25 02/10/17 23:25 02/10/17 23:25 02/10/17 23:25 - Medications Medications: Current Medications Acetaminophen (Tylenol 325mg Tab) 650 mg PO Q6 PRN PRN Reason: Pain, Mild (1-3) Piperacillin Sod/Tazobactam Sod (Zosyn 4.5 Gm Iv Premix) 4.5 gm in 100 mls @ 200 mls/hr IVPB Q6H [facility] Last Admin: 02/11/17 00:52 Dose: 200 mls/hr Vancomycin HCl 1,000 mg/ (Sodium Chloride) 250 mls @ 166.6 mls/hr IVPB Q12H [facility] Last Admin: 02/10/17 18:35 Dose: 166.6 mls/hr Sodium Chloride (Sodium Chloride 0.9%) 1,000 mls @ 125 mls/hr IV .Q8H [facility] Last Admin: 02/10/17 21:37 Dose: 125 mls/hr Oxycodone HCl (Oxycodone Immediate Release Tab) 5 mg PO Q6 PRN PRN Reason: Pain, severe (8-10) Last Admin: 02/10/17 23:42 Dose: 5 mg Saccharomyces Boulardii (Florastor) 250 mg PO BID [facility] Last Admin: 02/10/17 18:46 Dose: 250 mg - Labs Labs: 02/10/17 07:03 02/10/17 07:03 Attending/Attestation - Attestation I have personally seen and examined this patient.: Yes I have fully participated in the care of the patient.: Yes I have reviewed all pertinent clinical information, including history, physical exam and plan: Yes Notes (Text): This is late computer entry for 02/10/17. patient seen, examined, and case discussed with day-time internet database specialist. Patient seen during afternoon rounds. Patient reports pain is 6/10 over the right lower posterior thigh. Patient refers to area of abscess as "hole in the thigh" and reports he was seen by the surgeon prior to my arrival and had his dressing changed. Patient also reports he has told by his prior primary that he does have diabetes, that this is not new information. I spoke with the patient that this is considered a medical condition and he would need diet and exercise modications to control his diabetes. Patient continues to have bandemia, afebrile, not tachycardia, not tachypnea, and does not meet sepsis criteria. Will continue to IV antibiotics for abscess and overlying cellulitis. Ordered for commutator undercutter referral and diabetes education. Assessment/Plan 1.) Abscess of the Right Leg * Consult: Dr. Chapin (general surgery) on the case * S/p ID POD 1 * Secondary to Cellulitis * Venous Doppler Scan 02/08/17: negative for DVT * Ultrasound of Lower extremities 02/08/17: Complex heterogeneous hypoechoic fluid collection seen within the posterior soft tissues of the right knee measuring 8.2 x 7.4 x3.5 centimeters. Internal areas increasing echogenicity. Uncertain clinical etiology and may represent an underlying abscess collection. Prominent overlying soft tissue swelling and reticulation * NS 125mls/hr * IV Abx: Zosyn 4.5gm IV Q6H (started 02/08/17) and Vancomycin 1 gram IVPB Q12H ( started 02/08/17) * Acetaminophen 650mg PO Q6 PRN mild pain * Oxycodone 5MG PO Q6 PRN severe pain * Monitor blood cultures 2.) History of Diabetes * Patient fails to mention he has diabetes. When I addressed him at bedside, he reports he does have diabetes and he was told by his primary he does have diabetes. Education provided at bedside. Recommended for diet and exercise for 3 -4 months to control blood sugar levels * Hgba1c: 7.3 * Monitor accuchecks Q AC and HS * Heart healthy, mod consistent carbohydrate diet 3.) Prophylaxis * held Heparin 5000 units SC Q8 prior to OR * Florastor 250mg PO bid * PT eval
[2017-02-10 07:43] LABS: ALBUMIN 2.9 g/dL (3.5-5.0)
[2017-02-10 07:46] LABS: AST/SGOT 24 U/L (17-59); GFR AFRICAN-AMERICAN > 60; GFR NON-AFRICAN AMERICAN > 60
[2017-02-10 07:47] LABS: ALB/GLOB RATIO 0.9 (1.0-2.1); ALT/SGPT 21 U/L (21-72); BLOOD UREA NITROGEN 11 mg/dL (9-20); CALCIUM 7.7 mg/dl (8.6-10.4)
[2017-02-10 07:48] LABS: MAGNESIUM 2.2 mg/dL (1.6-2.3)
[2017-02-10] MEDS: oxyCODONE 5 mg Immediate Release Tab PO PRN ×2 (09:07→23:42)
[2017-02-10 09:38] LABS: BANDS 14 % (0-2); EOSINOPHIL 5 % (0-4); LYMPHOCYTE 12 % (20-40); MONOCYTE 5 % (0-10); NEUTROPHIL 64 % (50-75); PLATELET ESTIMATE NORMAL (NORMAL); TOTAL CELLS COUNTED 100
[2017-02-10] MEDS: Saccharomyces Boulardi 250 mg Cap PO SCH ×2 (10:55→18:46)
[2017-02-10] MEDS: Sodium Chloride 0.9% 1,000 ML IV SCH (21:37)
[2017-02-11] MEDS: Piperacill/Tazo 4.5gm in Dex 4.5 GM/100 ML BAG IVPB SCH ×4 (00:52→18:06)
[2017-02-11] MEDS: Sodium Chloride 0.9% 1,000 ML IV SCH ×3 (04:18→14:15)
[2017-02-11 07:25] LABS: BASO % 0.9 % (0.0-2.0); EOS # 0.4 K/uL (0.0-0.7); EOS % 10.4 % (0.0-4.0); HEMOGLOBIN 12.2 g/dL (12.0-18.0); LYMPH # 0.7 K/uL (1.0-4.3); MEAN CELL VOLUME 86.1 fL (80.0-94.0); MEAN CORPUSCULAR HGB CONC 33.7 g/dL (33.0-37.0); MEAN PLATELET VOLUME 8.6 fL (7.2-11.7); MONO # 0.5 K/uL (0.0-0.8); NEUT # 2.1 K/uL (1.8-7.0); NEUT % 56.7 % (50.0-75.0); NRBC % 0.1 % (0.0-2.0); RBC 4.2 Mil/uL (4.40-5.90); WHITE BLOOD COUNT 3.7 K/uL (4.8-10.8)
[2017-02-11 08:01] LABS: ALB/GLOB RATIO 0.9 (1.0-2.1); AST/SGOT 29 U/L (17-59); GFR AFRICAN-AMERICAN > 60; GFR NON-AFRICAN AMERICAN > 60
[2017-02-11 08:02] LABS: ALT/SGPT 25 U/L (21-72); BLOOD UREA NITROGEN 8 mg/dL (9-20); CALCIUM 7.4 mg/dl (8.6-10.4); MAGNESIUM 2.2 mg/dL (1.6-2.3)
[2017-02-11] MEDS: Saccharomyces Boulardi 250 mg Cap PO SCH ×2 (10:36→18:09)
[2017-02-11] MEDS ORDERED: oxyCODONE 5 mg Immediate Release Tab PO PRN (13:32)
[2017-02-11] MEDS ORDERED: oxyCODONE 10 mg Immediate Release Tab PO PRN (13:32)
--- NOTE | 2017-02-11 13:56 | CP.PCM.PN ---
Subjective - Date & Time of Evaluation Date of Evaluation: 02/11/17 Time of Evaluation: 07:00 - Subjective Subjective: PGY1 on medicine Dr. Slater's service: Patient seen and examined at bedside this morning. Patient states he still has right leg tenderness near his calf area. Patient states the pain is an 8 out of 10. Patient states his leg is still swollen. Patient states he has pain when he attempts to straighten his leg in bed. Patient states yesterday he had 3 loose bowel movements that were pasty in texture. Patient denies fever, chest pain, current shortness of breath, dysuria, vomiting. Objective - Vital Signs/Intake and Output Vital Signs (last 24 hours): Temp Pulse Resp BP Pulse Ox 97.8 F 62 20 102/55 L 98 02/11/17 08:00 02/11/17 08:00 02/11/17 08:00 02/11/17 08:00 02/11/17 08:00 Intake and Output: 02/11/17 02/11/17 06:59 18:59 Intake Total 650 Balance 650 - Medications Medications: Current Medications Acetaminophen (Tylenol 325mg Tab) 650 mg PO Q6 PRN PRN Reason: Pain, Mild (1-3) Heparin Sodium (Porcine) (Heparin) 5,000 units SC Q8 [facility] Piperacillin Sod/Tazobactam Sod (Zosyn 4.5 Gm Iv Premix) 4.5 gm in 100 mls @ 200 mls/hr IVPB Q6H [facility] Last Admin: 02/11/17 11:42 Dose: 200 mls/hr Vancomycin HCl 1,000 mg/ (Sodium Chloride) 250 mls @ 166.6 mls/hr IVPB Q12H [facility] Last Admin: 02/11/17 05:13 Dose: 166.6 mls/hr Sodium Chloride (Sodium Chloride 0.9%) 1,000 mls @ 125 mls/hr IV .Q8H [facility] Last Admin: 02/11/17 10:37 Dose: Not Given Oxycodone HCl (Oxycodone Immediate Release Tab) 5 mg PO Q6 PRN PRN Reason: Pain, moderate (4-7) Oxycodone HCl (Oxycodone Immediate Release Tab) 10 mg PO Q6 PRN PRN Reason: Pain, severe (8-10) Saccharomyces Boulardii (Florastor) 250 mg PO BID [facility] Last Admin: 02/11/17 10:36 Dose: 250 mg - Labs Labs: 02/11/17 07:06 02/11/17 07:06 - Constitutional Appears: No Acute Distress - Head Exam Head Exam: NORMAL INSPECTION - Eye Exam Eye Exam: Normal appearance - ENT Exam ENT Exam: Mucous Membranes Moist - Respiratory Exam Respiratory Exam: Clear to Ausculation Bilateral, NORMAL BREATHING PATTERN - Cardiovascular Exam Cardiovascular Exam: REGULAR RHYTHM, RRR, +S1, +S2. absent: JVD - GI/Abdominal Exam GI & Abdominal Exam: Soft, Normal Bowel Sounds. absent: Distended, Tenderness - Extremities Exam Extremities Exam: Calf Tenderness (right calf tenderness due to abscess), Tenderness Additional comments: right calf swelling due abscess - Neurological Exam Neurological Exam: Alert, Awake, Oriented x3 - Psychiatric Exam Psychiatric exam: Normal Mood - Skin Skin Exam: Dry, Intact, Normal Color Additional comments: right lower extremity (calf area) abscess. Assessment and Plan - Assessment and Plan (Free Text) Plan: 1.) Abscess of the Right Leg * Consult: Dr. Chapin (general surgery) on the case * S/p Incsicion and Drainage Post Operative Day 2 * Secondary to Cellulitis * Patient continues to have bandemia, afebrile, not tachycardia, not tachypnea, and does not meet SIRS criteria. * Lactic Acid (02/11/17): 1.2 * Venous Doppler Scan 02/08/17: negative for DVT * Ultrasound of Lower extremities 02/08/17: Complex heterogeneous hypoechoic fluid collection seen within the posterior soft tissues of the right knee measuring 8.2 x 7.4 x3.5 centimeters. Internal areas increasing echogenicity. Uncertain clinical etiology and may represent an underlying abscess collection. Prominent overlying soft tissue swelling and reticulation * NS 125mls/hr * IV Abx: Zosyn 4.5gm IV Q6H (started 02/08/17) and Vancomycin 1 gram IVPB Q12H ( started 02/08/17) * Acetaminophen 650mg PO Q6 PRN mild pain * Oxycodone 5MG PO Q6 PRN moderate pain * Oxycodone 10mg PO Q6 PRN severe pain * f/u wound culture (02/09/17) preliminary results show staphylococcus aureus 2.) Diarrhea * C. Diff: Negative 3.) Tinea Pedis * Clotrimazole cream topical BID 4.) History of Diabetes * Patient fails to mention he has diabetes. When I addressed him at bedside, he reports he does have diabetes and he was told by his primary he does have diabetes. Education provided at bedside. Recommended for diet and exercise for 3 -4 months to control blood sugar levels * Hgba1c: 7.3 * Monitor accuchecks Q AC and HS * Metformin 500mg PO BID [facility] (started 02/11/17) for 3 months - patient to follow up with PMD * Heart healthy, mod consistent carbohydrate diet 5.) Prophylaxis * Heparin 5000 units SC Q8 * Florastor 250mg PO bid * PT eval
[2017-02-11] MEDS ORDERED: Clotrimazole 1% Cream(30 gm) TOP SCH (18:00)
[2017-02-12] MEDS: Piperacill/Tazo 4.5gm in Dex 4.5 GM/100 ML BAG IVPB SCH ×3 (00:51→11:58)
[2017-02-12 01:24] VITALS: RESP 20
[2017-02-12] MEDS: Sodium Chloride 0.9% 1,000 ML IV SCH ×2 (02:15→10:48)
--- NOTE | 2017-02-12 07:41 | CP.PCM.PN ---
Subjective - Date & Time of Evaluation Date of Evaluation: 02/12/17 Time of Evaluation: 01:30 - Subjective Subjective: PGY1 on medicine Dr. Slater's service: Patient seen and examined at bedside this morning. Patient states he still has right leg tenderness near his calf area. Patient states the pain is an 4 out of 10. Patient states his leg is still swollen. Patient states he has pain when he attempts to straighten his leg in bed. Patient denies fever, chest pain , current shortness of breath, dysuria, vomiting. Objective - Vital Signs/Intake and Output Vital Signs (last 24 hours): Temp Pulse Resp BP Pulse Ox 97.6 F 68 20 93/53 L 97 02/11/17 23:32 02/11/17 23:32 02/11/17 23:32 02/11/17 23:32 02/11/17 23:32 Intake and Output: 02/12/17 02/12/17 06:59 18:59 Intake Total 600 Balance 600 - Medications Medications: Current Medications Acetaminophen (Tylenol 325mg Tab) 650 mg PO Q6 PRN PRN Reason: Pain, Mild (1-3) Heparin Sodium (Porcine) (Heparin) 5,000 units SC Q8 [facility] Last Admin: 02/12/17 06:06 Dose: 5,000 units Piperacillin Sod/Tazobactam Sod (Zosyn 4.5 Gm Iv Premix) 4.5 gm in 100 mls @ 200 mls/hr IVPB Q6H [facility] Last Admin: 02/12/17 06:06 Dose: 200 mls/hr Vancomycin HCl 1,000 mg/ (Sodium Chloride) 250 mls @ 166.6 mls/hr IVPB Q12H [facility] Last Admin: 02/12/17 05:25 Dose: 166.6 mls/hr Sodium Chloride (Sodium Chloride 0.9%) 1,000 mls @ 125 mls/hr IV .Q8H [facility] Last Admin: 02/12/17 02:15 Dose: 125 mls/hr Metformin HCl (Glucophage) 500 mg PO BIDAC [facility] Last Admin: 02/11/17 18:09 Dose: 500 mg Nystatin (Mycostatin Cream) 0 ea TOP BID [facility] Oxycodone HCl (Oxycodone Immediate Release Tab) 5 mg PO Q6 PRN PRN Reason: Pain, moderate (4-7) Oxycodone HCl (Oxycodone Immediate Release Tab) 10 mg PO Q6 PRN PRN Reason: Pain, severe (8-10) Saccharomyces Boulardii (Florastor) 250 mg PO BID [facility] Last Admin: 02/11/17 18:09 Dose: 250 mg - Labs Labs: 02/11/17 07:06 02/11/17 07:06 - Constitutional Appears: Well - Head Exam Head Exam: ATRAUMATIC, NORMAL INSPECTION, NORMOCEPHALIC - Eye Exam Eye Exam: EOMI, Normal appearance, PERRL - ENT Exam ENT Exam: Mucous Membranes Moist, Normal Exam - Neck Exam Neck Exam: Full ROM, Normal Inspection. absent: Lymphadenopathy - Respiratory Exam Respiratory Exam: Clear to Ausculation Bilateral, NORMAL BREATHING PATTERN - Cardiovascular Exam Cardiovascular Exam: REGULAR RHYTHM, +S1, +S2. absent: Murmur - GI/Abdominal Exam GI & Abdominal Exam: Soft, Normal Bowel Sounds. absent: Tenderness - Rectal Exam Rectal Exam: Deferred - Extremities Exam Extremities Exam: Tenderness Additional comments: right calf swelling due abscess - Neurological Exam Neurological Exam: Alert, Awake, Oriented x3 - Psychiatric Exam Psychiatric exam: Normal Affect, Normal Mood - Skin Skin Exam: Dry, Intact, Normal Color, Warm Assessment and Plan - Assessment and Plan (Free Text) Assessment: 1.) Abscess of the Right Leg * Consult: Dr. Chapin (general surgery) on the case * S/p Incsicion and Drainage Post Operative Day 2 * Secondary to Cellulitis * Patient continues to have bandemia, afebrile, not tachycardia, not tachypnea, and does not meet SIRS criteria. * Lactic Acid (02/11/17): 1.2 * Venous Doppler Scan 02/08/17: negative for DVT * Ultrasound of Lower extremities 02/08/17: Complex heterogeneous hypoechoic fluid collection seen within the posterior soft tissues of the right knee measuring 8.2 x 7.4 x3.5 centimeters. Internal areas increasing echogenicity. Uncertain clinical etiology and may represent an underlying abscess collection. Prominent overlying soft tissue swelling and reticulation * NS 125mls/hr * IV Abx: Zosyn 4.5gm IV Q6H (started 02/08/17) and Vancomycin 1 gram IVPB Q12H ( started 02/08/17) * Acetaminophen 650mg PO Q6 PRN mild pain * Oxycodone 5MG PO Q6 PRN moderate pain * Oxycodone 10mg PO Q6 PRN severe pain * f/u wound culture (02/09/17) preliminary results show staphylococcus aureus 2.) Diarrhea * C. Diff: Negative 3.) Tinea Pedis * Clotrimazole cream topical BID 4.) History of Diabetes * Patient fails to mention he has diabetes. When I addressed him at bedside, he reports he does have diabetes and he was told by his primary he does have diabetes. Education provided at bedside. Recommended for diet and exercise for 3 -4 months to control blood sugar levels * Hgba1c: 7.3 * Monitor accuchecks Q AC and HS * Metformin 500mg PO BID AC (started 02/11/17) for 3 months - patient to follow up with PMD * Heart healthy, mod consistent carbohydrate diet 5.) Prophylaxis * Heparin 5000 units SC Q8 * Florastor 250mg PO bid * PT eval
[2017-02-12 08:08] LABS: BASO # 0.1 K/uL (0.0-0.2); BASO % 1.5 % (0.0-2.0); EOS # 0.5 K/uL (0.0-0.7); EOS % 11.8 % (0.0-4.0); HEMOGLOBIN 12.8 g/dL (12.0-18.0); LYMPH # 0.6 K/uL (1.0-4.3); MEAN CELL VOLUME 85.9 fL (80.0-94.0); MEAN CORPUSCULAR HEMOGLOBIN 29.1 pg (27.0-31.0); MEAN CORPUSCULAR HGB CONC 33.9 g/dL (33.0-37.0); MEAN PLATELET VOLUME 8.8 fL (7.2-11.7); MONO # 0.4 K/uL (0.0-0.8); MONO % 10.3 % (0.0-10.0); NEUT # 2.4 K/uL (1.8-7.0); NEUT % 60.4 % (50.0-75.0); RBC 4.39 Mil/uL (4.40-5.90); RED CELL DISTRIBUTION WIDTH 12.9 % (11.5-14.5)
[2017-02-12 08:27] LABS: ALBUMIN 3.1 g/dL (3.5-5.0)
[2017-02-12 08:30] LABS: ALB/GLOB RATIO 0.9 (1.0-2.1); AST/SGOT 39 U/L (17-59); GFR AFRICAN-AMERICAN > 60; GFR NON-AFRICAN AMERICAN > 60
[2017-02-12 08:31] LABS: ALT/SGPT 37 U/L (21-72); BLOOD UREA NITROGEN 9 mg/dL (9-20); MAGNESIUM 2.1 mg/dL (1.6-2.3)
[2017-02-12] MEDS: Saccharomyces Boulardi 250 mg Cap PO SCH (10:50)
[2017-02-12] MEDS: Nystatin 100,000 Units/gm Cream(15 gm) TOP SCH (10:51)
[2017-02-12 20:49] VITALS: O2SAT 96
[2017-02-13] MEDS: Sodium Chloride 0.9% 1,000 ML IV SCH ×2 (02:15→10:02)
[2017-02-13 07:19] LABS: BASO # 0.1 K/uL (0.0-0.2); BASO % 1.2 % (0.0-2.0); EOS # 0.5 K/uL (0.0-0.7); EOS % 11.4 % (0.0-4.0); HEMOGLOBIN 12.2 g/dL (12.0-18.0); LYMPH # 0.6 K/uL (1.0-4.3); LYMPH % 14.7 % (20.0-40.0); MEAN CELL VOLUME 86.7 fL (80.0-94.0); MEAN CORPUSCULAR HEMOGLOBIN 28.9 pg (27.0-31.0); MEAN CORPUSCULAR HGB CONC 33.4 g/dL (33.0-37.0); MEAN PLATELET VOLUME 8.9 fL (7.2-11.7); MONO # 0.6 K/uL (0.0-0.8); MONO % 13.7 % (0.0-10.0); NEUT # 2.5 K/uL (1.8-7.0); NRBC % 0.1 % (0.0-2.0); RBC 4.23 Mil/uL (4.40-5.90); WHITE BLOOD COUNT 4.2 K/uL (4.8-10.8)
[2017-02-13 07:55] LABS: ALBUMIN 3.3 g/dL (3.5-5.0)
[2017-02-13 07:57] LABS: GFR AFRICAN-AMERICAN > 60; GFR NON-AFRICAN AMERICAN > 60
[2017-02-13 07:58] LABS: ALT/SGPT 37 U/L (21-72); AST/SGOT 40 U/L (17-59); BLOOD UREA NITROGEN 9 mg/dL (9-20); CALCIUM 8.4 mg/dl (8.6-10.4)
[2017-02-13] MEDS: Saccharomyces Boulardi 250 mg Cap PO SCH (10:00)
[2017-02-13] MEDS: Nystatin 100,000 Units/gm Cream(15 gm) TOP SCH (10:01)
[2017-02-13 11:24] VITALS: BP 102/62; PULSE 64; TEMP 97.9
--- NOTE | 2017-02-13 13:38 | CP.PCM.DIS ---
Provider - Provider Date of Admission: 02/08/17 16:18 Attending physician: Gilbert Slater MD Time Spent in preparation of Discharge (in minutes): 45 Diagnosis - Discharge Diagnosis (1) Abscess of right leg Status: Acute (2) Prophylactic measure Status: Acute Hospital Course - Lab Results Lab Results: Micro Results 02/09/17 22:14 Leg - Right Gram Stain - Final 02/09/17 22:14 Leg - Right Wound Culture - Final Staphylococcus Aureus 02/09/17 Unknown Urine Urine Culture - Final No Growth (<1,000 CFU/ML) Most Recent Lab Values WBC 4.2 K/uL (4.8-10.8) L 02/13/17 06:51 RBC 4.23 Mil/uL (4.40-5.90) L 02/13/17 06:51 Hgb 12.2 g/dL (12.0-18.0) 02/13/17 06:51 Hct 36.7 % (35.0-51.0) 02/13/17 06:51 MCV 86.7 fL (80.0-94.0) 02/13/17 06:51 MCH 28.9 pg (27.0-31.0) 02/13/17 06:51 MCHC 33.4 g/dL (33.0-37.0) 02/13/17 06:51 RDW 13.0 % (11.5-14.5) 02/13/17 06:51 Plt Count 142 K/uL (130-400) 02/13/17 06:51 MPV 8.9 fL (7.2-11.7) 02/13/17 06:51 Neut % (Auto) 59.0 % (50.0-75.0) 02/13/17 06:51 Lymph % (Auto) 14.7 % (20.0-40.0) L 02/13/17 06:51 [place] % (Auto) 13.7 % (0.0-10.0) H 02/13/17 06:51 Eos % (Auto) 11.4 % (0.0-4.0) H 02/13/17 06:51 Baso % (Auto) 1.2 % (0.0-2.0) 02/13/17 06:51 Neut # 2.5 K/uL (1.8-7.0) 02/13/17 06:51 Lymph # 0.6 K/uL (1.0-4.3) L 02/13/17 06:51 [place] # 0.6 K/uL (0.0-0.8) 02/13/17 06:51 Eos # 0.5 K/uL (0.0-0.7) 02/13/17 06:51 Baso # 0.1 K/uL (0.0-0.2) 02/13/17 06:51 Neutrophils % (Manual) 64 % (50-75) 02/10/17 07:03 Band Neutrophils % 14 % (0-2) H* 02/10/17 07:03 Lymphocytes % (Manual) 12 % (20-40) L 02/10/17 07:03 Monocytes % (Manual) 5 % (0-10) 02/10/17 07:03 Eosinophils % (Manual) 5 % (0-4) H 02/10/17 07:03 Myelocytes % 1 % (0-0) H 02/09/17 07:14 Platelet Estimate Normal (NORMAL) 02/10/17 07:03 RBC Morphology Normal 02/10/17 07:03 Poikilocytosis (manual Slight 02/09/17 07:14 Anisocytosis (manual) Slight 02/09/17 07:14 Sodium 143 mmol/L (132-148) 02/13/17 06:51 Potassium 3.8 mmol/L (3.6-5.2) 02/13/17 06:51 Chloride 109 mmol/L (98-107) H 02/13/17 06:51 Carbon Dioxide 25 mmol/L (22-30) 02/13/17 06:51 Anion Gap 13 (10-20) 02/13/17 06:51 BUN 9 mg/dL (9-20) 02/13/17 06:51 Creatinine 0.7 MG/DL (0.8-1.5) L 02/13/17 06:51 Est GFR ( Amer) > 60 02/13/17 06:51 Est GFR (Non-Af Amer) > 60 02/13/17 06:51 POC Glucose (mg/dL) 109 mg/dL (65-110) 02/13/17 11:59 Random Glucose 96 mg/dL (75-110) 02/13/17 06:51 Hemoglobin A1c 7.3 % (4.2-6.5) H 02/09/17 07:14 Lactic Acid 1.2 mmol/L (0.7-2.1) 02/11/17 14:19 Calcium 8.4 mg/dl (8.6-10.4) L 02/13/17 06:51 Phosphorus 2.9 mg/dL (2.5-4.5) 02/13/17 06:51 Magnesium 2.0 mg/dL (1.6-2.3) 02/13/17 06:51 Total Bilirubin 0.5 mg/dL (0.2-1.3) 02/13/17 06:51 AST 40 U/L (17-59) 02/13/17 06:51 ALT 37 U/L (21-72) 02/13/17 06:51 Alkaline Phosphatase 72 U/L (38-126) 02/13/17 06:51 Total Protein 6.5 g/dL (6.3-8.3) 02/13/17 06:51 Albumin 3.3 g/dL (3.5-5.0) L 02/13/17 06:51 Globulin 3.3 gm/dL (2.2-3.9) 02/13/17 06:51 Albumin/Globulin Ratio 1.0 (1.0-2.1) 02/13/17 06:51 Urine Color Yellow (YELLOW) 02/09/17 15:08 Urine Clarity Clear (Clear) 02/09/17 15:08 Urine pH 6.0 (5.0-8.0) 02/09/17 15:08 Ur Specific [place] 1.016 (1.003-1.030) 02/09/17 15:08 Urine Protein Negative mg/dL (NEGATIVE) 02/09/17 15:08 Urine Glucose (UA) Normal mg/dL (Normal) 02/09/17 15:08 Urine Ketones Negative mg/dL (NEGATIVE) 02/09/17 15:08 Urine Blood Negative (NEGATIVE) 02/09/17 15:08 Urine Nitrate Negative (NEGATIVE) 02/09/17 15:08 Urine Bilirubin Negative (NEGATIVE) 02/09/17 15:08 Urine Urobilinogen Normal mg/dL (0.2-1.0) 02/09/17 15:08 Ur Leukocyte Esterase Neg [place]/uL (Negative) 02/09/17 15:08 Urine WBC (Auto) 1 /hpf (0-5) 02/09/17 15:08 Ur Squamous Epith Cells < 1 /hpf (0-5) 02/09/17 15:08 Vancomycin Trough 5.0 ug/mL (5.0-10.0) 02/10/17 07:03 C. difficile Ag & Toxin Negative (NEGATIVE) 02/11/17 15:10 - Hospital Course Hospital Course: As per admission: HPI: Patient is 46 year old male with no significant past medical history presents to the ED with complaints of an area of redness and swelling to the right lower leg. Patient was seen on 02/01 for same complaint and had a doppler which was negative for DVT and CT of the leg with contrast which showed a mass in the gastrocnemius muscle, hematoma vs. neoplasm with stranding. Patient was asked to be admitted but he denied and left. Currently, patient states that his symptoms has worsens over the past week, rating his pain a 8/10. Patient states that his pain his alleviated with walking and exacerbated with standing. Patient states that he has been taking advil, which provided minimal relief. Patient denies any radiation with this pain. Patient reports fever, chills, night sweats but denies chest pain, sob, abd pain, nausea, vomiting, urinary symptoms, rash, sick contacts and recent travels Hospital Course: Patient is 46 year old male with no significant past medical history who presents to the ED with complaints of an area of redness and swelling to the right lower leg. Patient had a venous doppler scan on bilateral extremities, which was negative for deep venous thrombosis. Whereas, an ultrasound of bilateral lower extremities showed complex heterogeneous hypoechoic fluid collection seen within the posterior soft tissues of the right knee measuring 8.2 x 7.4 x3.5 centimeters. Internal areas increasing echogenicity, which may present with an underlying abscess collection. Subsequently, General surgery, Dr. Castillo was consulted who recommended an incision and drainage of the abscess located on the patient's right gastrocnemius muscle. The drainage from the abscess was cultured, which grew Staphylococcus auerus. Post-operatively, patient continued to be managed on antibiotics and patient started to improve clinically. Patient is to complete oral antibiotics and follow up outpatient as instructed. This is a brief summary of events. For a complete course, refer to the medical record. Discharge Exam - Head Exam Head Exam: ATRAUMATIC, NORMAL INSPECTION, NORMOCEPHALIC - Eye Exam Eye Exam: EOMI, Normal appearance - ENT Exam ENT Exam: Mucous Membranes Moist, Normal Exam - Respiratory Exam Respiratory Exam: Clear to PA & Lateral, NORMAL BREATHING PATTERN - Cardiovascular Exam Cardiovascular Exam: REGULAR RHYTHM, +S1, +S2 - GI/Abdominal Exam GI & Abdominal Exam: Normal Bowel Sounds, Soft - Extremities Exam Extremities exam: normal capillary refill, normal inspection - Neurological Exam Neurological exam: Alert, Oriented x3 - Psychiatric Exam Psychiatric exam: Normal Affect, Normal Mood - Skin Skin Exam: Dry, Normal Color, Warm Discharge Plan - Discharge Medications Prescriptions: Ciprofloxacin HCl [Cipro] 500 mg PO Q12 #16 tablet metFORMIN [glucOPHAGE] 500 mg PO BIDAC #60 tab - Follow Up Plan Condition: FAIR Disposition: HOME/ ROUTINE Instructions: Ciprofloxacin (By mouth), Metformin (By mouth), Cellulitis (DC), Cellulitis (GEN), Surgical Site Infections (GEN), Abscess (GEN) Additional Instructions: Please discharge patient home as per Dr. Slater Patient will need additional 8 days of antibiotics orally (Ciprofloxacin 500mg PO Q12H). Patient will complete dose on February 21, 2017. Please keep wound clean and dry. Please start the following new medications: 1. Metformin 500mg PO BIDAC (Before meals) 2. Ciprofloxacin 500mg PO Q12H ( for 8 days): Please complete dose Please resume home medications: 1. Ibuprofen 200mg 3 TAB PO PRN (As needed) Please follow-up with General Surgery, Dr. Castillo within a week Please follow- up with the [facility] within a week Please return to the hospital if symptoms resume. Referrals: [facility] [Outside] Rufus Castillo MD [Staff Provider] -
--- NOTE | 2017-03-03 08:17 | OP ---
PROCEDURE DATE: 02/09/2017 PREOPERATIVE DIAGNOSES: Abscess and cellulitis of the right lower leg. POSTOPERATIVE DIAGNOSES: Abscess and cellulitis of the right lower leg. PROCEDURE PERFORMED: Incision and drainage, debridement, partial closure, abscess right lower extremity. SURGEON: Rufus Castillo MD ANESTHESIA: General. BLOOD LOSS: 30 mL. POSTOP CONDITION: Stable. INDICATIONS FOR SURGERY: This is a 46-year-old male admitted with severe cellulitis of the right leg secondary to venous insufficiency, found to have an abscess, taken to the OR for incision and drainage. PROCEDURE IN DETAIL: The patient was taken to the operating room and the right lower extremity was prepped and draped. An incision was made over the abscess cavity, approximately 20 mL of pus was drained and cultured. Bleeding was controlled using a Bovie, a larger bleeding perforating vein was repaired. The wound was irrigated with copious amounts of saline solution. A partial tissue transfer closure was performed in the periphery, The central portion was packed open with wet saline gauze. The patient tolerated the procedure well and returned to the recovery room in stable condition. Rufus Castillo MD
== END 2017-02-13 14:45 | disposition home or self-care (01) | DRG 287 ==
LOC: C.ER 10:01 → C.9E 16:18 → C.5T 18:44
PROVIDERS: ADMIT Internal Medicine; ATTEND Internal Medicine
PROC: 0HXKXZZ Transfer Right Lower Leg Skin, External Approach (ICD-10-PCS; 2017-02-09)
PROC: 0H9KXZX Drainage of Right Lower Leg Skin, External Approach, Diagnostic (ICD-10-PCS; principal; 2017-02-09 14:45)
DX: E11.628 Type 2 diabetes mellitus with other skin complications (principal); L03.115 Cellulitis of right lower limb; D72.825 Bandemia; R19.7 Diarrhea, unspecified; B35.3 Tinea pedis; Z87.891 Personal history of nicotine dependence; B95.61 Methicillin susceptible Staphylococcus aureus infection as the cause of diseases classified elsewhere